=== PATIENT | male | born 1990 | race Caucasian/White ===

== ENCOUNTER 2017-12-05 02:08 | Inpatient (IN) ==
[2017-12-05] MEDS ORDERED: 0.9 % Sodium Chloride 1,000 ML IVC ONE (02:17)
[2017-12-05] MEDS ORDERED: Isovue-370 500 ML INFUS..BTL IV ONE (02:17)
[2017-12-05] MEDS ORDERED: Dexamethasone 4 MG/ML VIAL IVP ONE (02:17)
--- NOTE | 2017-12-05 02:21 | Emergency Department Note ---
Disposition Clinical Impression: Dentoalveolar cellulitis Disposition: Admitted As Inpatient Condition: Undetermined Forms: ED Satisfaction Letter Time of Disposition: 03:57 General Adult HPI - General Chief complaint: ED Dental/Oral Stated complaint: facial swelling Time Seen by Provider: 12/05/17 02:12 Source: patient Mode of arrival: ambulatory Limitations: no limitations Nursing Notes Reviewed: Yes Vital Signs Reviewed: Yes - History of Present Illness HPI Narrative: 27-year-old male with poor dentition arrives to emergency Department complaint of dental abscess in the left side swelling and increased pain. The patient states he is having trouble opening his jaw due to the amount of pain and is having pain underneath his tongue as well as in the left side of his face. The patient recently took some old antibiotics prior to coming to the emergency Department is for started and states that they have worked but after running out swelling quickly return. The patient was in the emergency department 2 days ago and was seen by nurse practitioner in fact track. The patient was prescribed Augmentin but the swelling is continued to get worse. Denies any fevers but does admit to a large amount of pain. Pain Scale: 8 - Related Data Previous Rx's Medication Instructions Recorded Tramadol HCl [Ultram] 50 mg PO Q6HR PRN #20 tab 10/04/16 Clindamycin [Cleocin] 450 mg PO Q6HR 10 Days capsule 10/07/16 Amoxicillin/Clavulanate [Augmentin] 875 mg PO BIDWM #14 tablet 12/03/17 Ibuprofen [Motrin] 600 mg PO Q8HR PRN #20 tab 12/03/17 Allergies Allergy/AdvReac Type Severity Reaction Status Date / Time No Known Allergies Allergy Verified 12/05/17 02:11 All systems ED: reviewed and negative except as stated. Constitutional: Denies: fever, chills, weakness ENT ED: Reports: dental pain, dysphagia. Denies: epistaxis, congestion Cardiovascular: Denies: chest pain Respiratory: Denies: dyspnea Gastrointestinal: Denies: abdominal pain, nausea, vomiting Genitourinary: Denies: urgency, dysuria Musculoskeletal: Reports: neck pain. Denies: back pain, arthralgia, myalgia Integumentary: Denies: rash Neurological: Denies: headache Past Medical History - Past Medical History Attestation: Yes The following information was validated with the patient. Source: patient Medical history: Reports: CVA, valvular heart disease Surgical history: Reports: no surgical history Psychiatric history: Reports: no psych history - Social History Smoking Status: Never smoker Smokeless Tobacco Status: No Alcohol use: Reports: occasionally Drug use: Reports: none Physical Exam - General Limitations: no limitations General appearance: alert, in no apparent distress - Head Head exam: atraumatic, normocephalic, normal inspection - Eye Eye exam: Present: normal appearance, PERRL, EOMI - ENT ENT exam: mucous membranes moist, other (Large of swelling in left face and oropharynx on left side. There is tenderness under tongue without swelling. Left neck tenderness) - Neck Neck exam: Present: normal inspection, full ROM, trachea midline, tenderness ( left neck) - Chest Chest inspection: Present: normal inspection, symmetric chest wall rise - Respiratory Respiratory exam: Present: normal lung sounds bilaterally - Cardiovascular Cardiovascular exam: Present: regular rate, normal rhythm, normal heart sounds - Abdominal Exam Abdominal exam: Present: soft, Non-Tender. Absent: tenderness, distention, guarding, rebound, rigidity - Extremities Exam Extremities exam: Present: normal inspection, full ROM. Absent: tenderness, pedal edema - Neurological Exam Neurological exam: Present: alert, oriented X3 - Skin Skin exam: Present: warm, dry, intact, normal color Course Vital Signs Temperature 97.5 F L 12/05/17 02:08 Pulse Rate 89 12/05/17 02:08 Respiratory Rate 20 12/05/17 02:08 Blood Pressure 149/95 12/05/17 02:08 O2 Sat by Pulse Oximetry 99 12/05/17 02:08 Temperature 97.5 F L 12/05/17 02:11 Pulse Rate 89 12/05/17 02:11 Respiratory Rate 20 12/05/17 02:11 Blood Pressure 149/95 12/05/17 02:11 O2 Sat by Pulse Oximetry 99 12/05/17 02:11 Oxygen Delivery Oxygen Delivery Room Air Medical Decision Making - [facility] Narrative Medical decision making narrative: Patient CT scan demonstrates findings consistent with cellulitis. No drainable abscess noted. No Dwain angina. Airway intact protecting. The patient was started on clindamycin 600 mg IV. Given the patient's failed outpatient treatment, we will admit the patient to hospital at this time. Accepted by Dr. Scott. - Lab Data Lab results reviewed: Yes I reviewed the patient's lab results. Result diagrams: 12/05/17 02:50 12/05/17 02:50 Lab Results 12/05/17 12/05/17 Range/Units 02:50 02:50 WBC 7.7 (4.3-11.1) K/mcL RBC 4.97 (4.19-5.50) M/mcL Hgb 17.0 H (12.9-16.9) g/dL Hct 46.0 (37.5-50.1) % MCV 92.6 (83.0-100.0) fL MCH 34.2 H (28.0-33.3) pg MCHC 37.0 H (31.6-35.5) g/dL RDW 12.2 (11.5-14.5) % Plt Count 198 (140-400) K/mcL MPV 11.5 (9.4-12.4) fL Immature Gran % 0.1 (0-4) % Seg Neutrophils % 61.5 % Lymphocytes % 27.0 % Monocytes % 8.9 % Eosinophils % 1.9 % Basophils % 0.6 % Neutrophils # 4.8 (1.6-8.9) K/mcL Lymphocytes # 2.1 (0.6-4.6) K/mcL Monocytes # 0.7 (0.0-1.3) K/mcL Eosinophils # 0.2 (0.0-0.6) K/mcL Basophils # 0.1 (0.0-0.2) K/mcL Sodium 135 L (136-145) mEq/L Potassium 3.8 (3.5-5.1) mEq/L Chloride 102 (98-107) mEq/L Carbon Dioxide 23 (23-29) mEq/L BUN 13 (6-20) mg/dL Creatinine 1.10 (0.70-1.30) mg/dL Est GFR ( Amer) > 60 (> 60) Est GFR (Non-Af Amer) > 60 (> 60) BUN/Creatinine Ratio 12 (6-26) Glucose 132 H (70-105) mg/dL Calculated Osmolality 282 (280-300) Calcium 9.6 (8.6-10.3) mg/dL - Radiology Data Radiology results reviewed: Yes I reviewed the patient's radiology results. Soft Tissue Neck CT 12/05/17 02:17 IMPRESSION: Left mandibular molar periapical tooth abscesses with 1st molar cortical erosion and overlying soft tissue swelling compatible with cellulitis. Although tiny microabscesses may be present, no CT evidence of well organized and drainable abscess. Continued surveillance recommended. Poor dentition with numerous dental caries. D/ / Alexandro Yeung / Alexandro Yeung Interpreting Provider: Alexandro Yeung
[2017-12-05] MEDS ORDERED: Ketorolac 15 MG/ML VIAL IVP ONE (02:55)
[2017-12-05 03:08] LABS: Basophils # 0.1 K/mcL (0.0-0.2); Basophils % 0.6 %; Eosinophils # 0.2 K/mcL (0.0-0.6); Eosinophils % 1.9 %; Immature Granulocytes % 0.1 % (0-4); Lymphocytes # 2.1 K/mcL (0.6-4.6); Mean Corpuscular Hemoglobin 34.2 pg (28.0-33.3); Mean Corpuscular Volume 92.6 fL (83.0-100.0); Mean Platelet Volume 11.5 fL (9.4-12.4); Monocytes # 0.7 K/mcL (0.0-1.3); Monocytes % 8.9 %; Neutrophils # 4.8 K/mcL (1.6-8.9); Platelet Count 198 K/mcL (140-400); Red Blood Count 4.97 M/mcL (4.19-5.50); Red Cell Distribution Width 12.2 % (11.5-14.5); Segmented Neutrophils % 61.5 %
[2017-12-05 03:22] LABS: BUN/Creatinine Ratio 12 (6-26); Blood Urea Nitrogen 13 mg/dL (6-20); Calcium 9.6 mg/dL (8.6-10.3); Carbon Dioxide 23 mEq/L (23-29); Chloride 102 mEq/L (98-107); Glucose 132 mg/dL (70-105); Osmolality,Calculated 282 (280-300); Potassium 3.8 mEq/L (3.5-5.1); Sodium 135 mEq/L (136-145); eGFR For African Americans > 60 (> 60); eGFR For Non-African Americans > 60 (> 60)
[2017-12-05] MEDS ORDERED: Clindamycin 600 MG/50 ML 600 MG/50 ML IV.SOLN IVPB ONE (03:43)
--- NOTE | 2017-12-05 04:05 | Emergency Department Note ---
Disposition Clinical Impression: Dentoalveolar cellulitis Disposition: Admitted As Inpatient Condition: Undetermined Referrals: NONE,PCP [Primary Care Provider] - Forms: ED Satisfaction Letter General Adult HPI - General Chief complaint: ED General Medical Stated complaint: facial swelling Time Seen by Provider: 12/05/17 02:12 Source: patient Mode of arrival: ambulatory Limitations: no limitations - History of Present Illness Pain Scale: 8 - Related Data Previous Rx's Medication Instructions Recorded Tramadol HCl [Ultram] 50 mg PO Q6HR PRN #20 tab 10/04/16 Clindamycin [Cleocin] 450 mg PO Q6HR 10 Days capsule 10/07/16 Amoxicillin/Clavulanate [Augmentin] 875 mg PO BIDWM #14 tablet 12/03/17 Ibuprofen [Motrin] 600 mg PO Q8HR PRN #20 tab 12/03/17 Allergies Allergy/AdvReac Type Severity Reaction Status Date / Time No Known Allergies Allergy Verified 12/05/17 02:11 Constitutional: Denies: fever, chills, weakness ENT ED: Reports: dental pain, dysphagia. Denies: epistaxis, congestion Cardiovascular: Denies: chest pain Respiratory: Denies: dyspnea Gastrointestinal: Denies: abdominal pain, nausea, vomiting Genitourinary: Denies: urgency, dysuria Musculoskeletal: Reports: neck pain. Denies: back pain, arthralgia, myalgia Integumentary: Denies: rash Neurological: Denies: headache Past Medical History - Past Medical History Medical history: Reports: CVA, valvular heart disease Surgical history: Reports: no surgical history Psychiatric history: Reports: no psych history - Social History Smoking Status: Never smoker Smokeless Tobacco Status: No Alcohol use: Reports: occasionally Drug use: Reports: none Physical Exam - General Limitations: no limitations General appearance: alert, in no apparent distress Course - Reevaluation(s) Reevaluation #1: Attestation note I examined this patient and my medical decision-making was reviewed with the emergency medicine resident. I agree with the documented findings, disposition and treatment plan as described except to the extent set forth below. Patient seen with emergency medicine resident Dr. Segundo Christianson, Please see a copy of his note for details of the H&P, ED evaluation, management and disposition. I have independently evaluated the patient and confirmed appropriate portions of the history and physical exam. Briefly: 19-year-old male comes in with dental pain and swelling the neck. No airway compromise no stridor no trismus worse voice at a CT scan of the neck with contrast no appreciable encroachment upon the airway dental abscess patient failed outpatient clindamycin and Augmentin will be admitted for IV antibiotics. Admission disposition pending. Time: 04:04 Vital Signs Temperature 97.5 F L 12/05/17 02:08 Pulse Rate 89 12/05/17 02:08 Respiratory Rate 20 12/05/17 02:08 Blood Pressure 149/95 12/05/17 02:08 O2 Sat by Pulse Oximetry 99 12/05/17 02:08 Temperature 97.5 F L 12/05/17 02:11 Pulse Rate 89 12/05/17 02:11 Respiratory Rate 20 12/05/17 02:11 Blood Pressure 149/95 12/05/17 02:11 O2 Sat by Pulse Oximetry 99 12/05/17 02:11 Oxygen Delivery Oxygen Delivery Room Air Medical Decision Making - Lab Data Result diagrams: 12/05/17 02:50 12/05/17 02:50 Lab Results 12/05/17 12/05/17 Range/Units 02:50 02:50 WBC 7.7 (4.3-11.1) K/mcL RBC 4.97 (4.19-5.50) M/mcL Hgb 17.0 H (12.9-16.9) g/dL Hct 46.0 (37.5-50.1) % MCV 92.6 (83.0-100.0) fL MCH 34.2 H (28.0-33.3) pg MCHC 37.0 H (31.6-35.5) g/dL RDW 12.2 (11.5-14.5) % Plt Count 198 (140-400) K/mcL MPV 11.5 (9.4-12.4) fL Immature Gran % 0.1 (0-4) % Seg Neutrophils % 61.5 % Lymphocytes % 27.0 % Monocytes % 8.9 % Eosinophils % 1.9 % Basophils % 0.6 % Neutrophils # 4.8 (1.6-8.9) K/mcL Lymphocytes # 2.1 (0.6-4.6) K/mcL Monocytes # 0.7 (0.0-1.3) K/mcL Eosinophils # 0.2 (0.0-0.6) K/mcL Basophils # 0.1 (0.0-0.2) K/mcL Sodium 135 L (136-145) mEq/L Potassium 3.8 (3.5-5.1) mEq/L Chloride 102 (98-107) mEq/L Carbon Dioxide 23 (23-29) mEq/L BUN 13 (6-20) mg/dL Creatinine 1.10 (0.70-1.30) mg/dL Est GFR ( Amer) > 60 (> 60) Est GFR (Non-Af Amer) > 60 (> 60) BUN/Creatinine Ratio 12 (6-26) Glucose 132 H (70-105) mg/dL Calculated Osmolality 282 (280-300) Calcium 9.6 (8.6-10.3) mg/dL
[2017-12-05] MEDS ORDERED: *HR* FentaNYL (PF) 100 MCG/2 ML VIAL IVP ONE (04:19)
[2017-12-05] MEDS ORDERED: Naloxone 0.4 MG/ML INJ IVP PRN (06:33)
--- NOTE | 2017-12-05 06:56 | Internal Med History&Physical ---
Date of Encounter: 12/05/17 Time of Encounter: 05:25 Internal Medicine - H&P: HPI Chief complaint: Facial pain, cellulitis Admitted From: Home Plans for Post Hospital Care: Home History of present illness: Mr. Garcia is a 27 year old male Patient presented to the emergency room with a 2 week history of left-sided facial swelling. Patient has a history of similar symptoms on the right side of his jaw and face about 1 year ago. He states at that time he was at the [facility] he was being treated for swelling and cellulitis by physicians over there but the swelling became bad enough that he required urgent [facility] to [facility] and intubation. At [facility] he required to have several teeth removed, and his jaw bone shaved down. He states he also ended up with an infection in his blood and had been treated in the hospital for 4 days. After that event he was discharged and sent home on oral antibiotics, only to have to be readmitted later as the infection spread. He required additional surgery after that. He stayed in the hospital 1 more day and then was discharged. He had no further complications up until about 2 weeks ago, when similar symptoms again to present on the left side of his face. He says he had leftover antibiotics from his previous event that he tried to take, he thinks it was clindamycin. He took it for about 1 week and the swelling and pain improved, however once he finished his remaining antibiotics the swelling and pain returned. He presented to the emergency room a few days prior to admission and was given Augmentin and sent home and was told that if this swelling and pain worsened that he should return to the ER. He was at work yesterday prior to admission and noted that the pain and swelling was increasing so he indeed went back to the ER. He has pain with chewing but has not had any difficulty breathing. He does state that he has increased anxiety about this which he thinks causes him to have to catch his breath sometimes. He denies shortness of breath, discharge from his mouth, bleeding from his mouth , fevers, chills, chest pain, abdominal pain, nausea, vomiting, diarrhea and constipation. After accepting admission for this patient I discussed and discovered this past history which I was not notified about when called from the ER. I was informed that ENT or oral maxillofacial surgery would be available if needed, but probably would not be needed for this admission as per ER. Dr. Lagos who is the other admitting night hospitalist on this evening went to the emergency room after we discovered this and discussed with the resident emergency room physician to clarify this and this history was not given during the admission over the phone. Patient was described as being stable with no drainable abscesses, and patient had a good airway. Specialty services like ENT and oral maxillofacial surgery was felt to be not required. Patient was started on IV clindamycin in the ER. Past Med Surg Social Fam HX - Past Medical History Medical history: CVA, valvular heart disease Additional medical history: pt states previous hx of stroke and [facility] "lost my records" Psychiatric history: no psych history - Past Surgical History Surgical History: no surgical history Additional surgical history: Jaw surgery. abdominal surgery - Social History Smoking Status: Never smoker Smokeless Tobacco Status: No Alcohol use: occasionally Drug use: none Internal Medicine - H&P: Meds Amoxicillin/Clavulanate [Augmentin] 875 mg PO BIDWM #14 tablet 12/03/17 [Rx] Ibuprofen [Motrin] 600 mg PO Q8HR PRN #20 tab 12/03/17 [Rx] 3 Allergy/AdvReac Type Severity Reaction Status Date / Time No Known Allergies Allergy Verified 12/05/17 02:11 All Systems PM: A 10-system review of systems was performed and is negative for pertinent findings except as documented above in the HPI. - Constitutional Vitals: Temp Pulse Resp BP Pulse Ox 98.6 F 75 15 124/88 98 12/05/17 04:51 12/05/17 04:51 12/05/17 04:51 12/05/17 04:51 12/05/17 04:51 General appearance: Present: mild distress, A&O X 3, pleasant, answers questions appropriately - Head Head exam: Present: normal inspection - Eye Eye exam: Present: EOMI, normal appearance - ENT Additional comments: Patient's oral cavity was difficult to examine due to pain and swelling. Left lower mandible and left cheek tender to palpation. Moderate tenderness to the left side of the neck. No obvious erythema in the mouth, no discharge noted - Expanded ENT Exam Mouth exam: Present: moist, tongue normal. Absent: drooling, dry mucosa, muffled voice Teeth exam: Present: edentulous Throat exam: Absent: tonsillar exudate - Neck Neck exam general surgery: Present: tenderness. Absent: nuchal rigidity Additional comments: Left side tenderness with palpation, but full range of motion - Respiratory Respiratory exam: Present: CTAB. Absent: accessory muscle use, chest wall tenderness, decreased breath sounds, rales, respiratory distress, rhonchi, stridor, wheezes - Cardiovascular Cardiovascular exam: Present: RRR. Absent: diastolic murmur, systolic murmur - GI/Abdominal GI/Abdominal exam: Present: normal bowel sounds, soft. Absent: distended, tenderness - Extremities Exam Extremities exam: Present: warm, radial pulses palpable and symmetrical. Absent : calf tenderness, tenderness Additional comments: Outside upper extremity weakness secondary to previous CVA - Neurological Exam Neurological exam: Present: alert, oriented X3. Absent: altered, no focal deficits, facial droop, speech deficit Additional comments: Left upper extremity weakness strength 3 out of 5, 5 out of 5 in all other extremities. - Skin Skin exam: Present: dry, intact, warm. Absent: rash Internal Med - H&P Results - Labs CBC & Chem 7: 12/05/17 02:50 12/05/17 02:50 - Assessment and plan (1) Dental abscess Current Visit: No Status: Acute Assessment and plan: As above in the H&P, patient was accepted for admission without complete history. Patient's CT shows left mandibular molar periapical tooth abscesses with first molar cortical erosion and overlying soft tissue swelling compatible with cellulitis. There were tiny microabscesses may also be present but there was no evidence of a well-organized drainable abscess. There is also poor dentition with numerous dental caries seen on the CT. Patient was described over the phone as having a good airway, with no drainable abscesses who had failed outpatient management with oral antibiotics. Details regarding his past history of right-sided issues that presented very similar to this were not included in the over the phone description. It was felt by the ER doctor that ENT and OMF specialists not be needed. Patient stated that he did inform the ER doctor about his previous history. Dr. Lagos who is my hospitalist partner for the evening discussed this with the ER, and confirmed that indeed this information was left out as it was felt to not be important. It is felt that this patient will indeed require specialist evaluation and management, which may not be available here. Continue IV antibiotics for now. Contact [facility] for likely transfer to their facility, as this is where the patient had been treated previously. NPO to prevent possibility of airway compromise. IV toradol for pain. (2) Mouth swelling Current Visit: Yes Status: Acute Assessment and plan: Secondary to dental pain and cellulitis. Failed outpatient management with oral antibiotics. Started on IV antibiotics Need to contact specialist for further management. (3) Dental caries Current Visit: No Status: Acute Assessment and plan: As seen on CT of head. Patient also has a history of this about 1 year ago. Previous to this event last year he did not have any issues with his teeth. Continue management of his cellulitis as above. Patient will likely need transfer to specialist. (4) History of CVA with residual deficit Current Visit: Yes Status: Acute Assessment and plan: Left upper extremity weakness from previous stroke. Patient is only on aspirin for this. Continue current management. (5) DVT prophylaxis Current Visit: Yes Status: Acute Assessment and plan: heparin - Time Spent With Patient Total time spent is greater than 50% in coordination of care (as documented) at patient's floor/unit and/or counseling patient: Greater than 35 minutes
[2017-12-05] MEDS: Ketorolac 15 MG/ML VIAL IVP PRN ×3 (07:03→17:05)
[2017-12-05] MEDS ORDERED: *HR* Heparin 5,000 UNIT/ML VIAL SQ SCH ×2 (07:30→18:00)
[2017-12-05] MEDS: Clindamycin 600 MG/50 ML 600 MG/50 ML IV.SOLN IVPB SCH ×2 (08:31→17:07)
[2017-12-05] MEDS ORDERED: Ringers Solution, Lactated 1,000 ML IVC SCH (12:15)
[2017-12-05 15:20] VITALS: BP 111/65
--- NOTE | 2017-12-05 16:51 | Discharge Summary ---
- NOTES TO OUTPATIENT PROVIDER Notes to Outpatient Provider: Pt admitted with oral abscesses. Transferred to [facility] for further care. Date of Encounter: 12/05/17 Time of Encounter: 09:30 - Discharge Diagnosis (1) Dentoalveolar cellulitis Priority: Primary Status: Acute (2) Dental abscess Priority: Primary Status: Acute (3) Dental caries Priority: Secondary Status: Chronic Hospital course: Mr. Garcia is a 27 year old male with hx of R side oral abscesses requiring intubation and surgery in 03/24 presented to ED with similar symptoms on the L. He had been taking oral abx as outpatient but it progressed. He was subsequently admitted. Mr Garcia was admitted to med surg. He was continued on IV abx and Toradol. He had trismus and swelling on L. After discussion with patient it was felt he should return to [facility] where he has had this issue treated before. Arrangements were made for transfer. Discharge discussed with: patient - Time Spent with Patient Total time spent providing and/or coordinating discharge services: 41min - Discharge Medications Home Medications: Heparin 5,000 unit SQ Q12HR vial 12/05/17 [Rx] Ketorolac [Toradol] 10 mg IVP Q4H PRN vial 12/05/17 [Rx] Naloxone [Narcan] 0.4 mg IVP Q2MIN PRN inj 12/05/17 [Rx] Allergies/Adverse Reactions: 3 Allergy/AdvReac Type Severity Reaction Status Date / Time No Known Allergies Allergy Verified 12/05/17 02:11 Date of admission: 12/05/17 11:38 Primary care physician: PCP NONE Discharging clinician: Boris Jack Anticipated date of discharge: 12/05/17 - Constitutional Vitals: Temp Pulse Resp BP Pulse Ox 97.6 F 78 16 111/65 98 12/05/17 15:16 12/05/17 15:16 12/05/17 15:16 12/05/17 15:16 12/05/17 15:16 General appearance: Present: A&O X 3, pleasant, answers questions appropriately - Head Head exam: Present: normocephalic - Eye Eye exam: Present: conjuntiva pink - ENT ENT exam: Present: mucous membranes dry - Expanded ENT Exam Mouth exam: Present: trismus Teeth exam: Present: dental caries - Respiratory Respiratory exam: Present: CTAB. Absent: rhonchi, wheezes - Cardiovascular Cardiovascular exam: Present: RRR. Absent: tachycardia - GI/Abdominal GI/Abdominal exam: Present: soft. Absent: tenderness - Extremities Exam Extremities exam: Present: warm. Absent: tenderness - Neurological Exam Neurological exam: Present: alert, oriented X3 - Skin Skin exam: Present: dry, warm - Patient Status Disposition: Transfer Short-Term Hosp Condition: Fair Functional capacity at discharge: independent ambulation Overall status at discharge: patient is not back to baseline - Discharge Instructions Follow Up With: NONE,PCP [Primary Care Provider] - - Diet and Activity Activity: increase activity as tolerated Diet: other (NPO)
== END 2017-12-05 18:45 | disposition critical access hospital (66) | DRG 158 ==
LOC: 3ANU 02:08 → EMEROO 02:08 → SUATTDRO 04:05 → 3ANU 04:43
PROVIDERS: ADMIT Family Medicine; ATTEND Internal Medicine